=== PATIENT | male | born 1960 | race Two or more races ===

== ENCOUNTER 2016-10-11 17:51 | Inpatient (IN) | payer SELFPAY ==
[~2016-10-11] VITALS: Ht 162.6 cm; Wt 81.1 kg
[2016-10-11 19:06] LABS: Basophils # (auto) 0 uL; Basophils % (auto) 0.4 % (0.0-2.0); Eosinophils # (auto) 0 uL; Eosinophils % (auto) 0.1 % (0.0-7.0); Hematocrit 50.5 % (41.0-53.0); Hemoglobin 16.1 g/dL (13.5-17.5); Lymphocytes # (auto) 1.4 uL; Lymphocytes % (auto) 13.5 % (10.0-50.0); Mean Corpuscular Hemoglobin 27.3 pg (28.0-32.0); Mean Corpuscular Volume 85.5 fL (80.0-100.0); Mean Platelet Volume 9.6 fL (7.4-10.4); Monocytes # (auto) 0.5 uL; Monocytes % (auto) 4.5 % (0.0-12.0); Neutrophils # (auto) 8.3 uL; Neutrophils % (auto) 81.5 % (37.0-80.0); Platelet Count (auto) 206 10^3/uL (140-450); Red Cell Distribution Width 13.3 % (11.6-16.0); White Blood Cell 10.2 10^3/uL (4.4-10.8)
[2016-10-11 19:21] LABS: INR 1.04 (0.9-1.15); Partial Thromboplastin Time 25.8 sec (22.64-33.71); Prothrombin Time 10.7 sec (9.37-12.3)
[2016-10-11 19:29] LABS: Albumin 4.2 g/dL (3.4-5.0); BUN/Creatinine Ratio 16.3; Bilirubin, Total 0.4 mg/dL (0.2-1.0); Calcium 9.5 mg/dL (8.5-10.1); Potassium 4.2 mmol/L (3.5-5.1); Total Protein 8.2 g/dL (6.4-8.2)
[2016-10-11] MEDS ORDERED: ONDANSETRON HCL 4 MG/2 ML VIAL IV ONE (20:30)
[2016-10-11] MEDS ORDERED: ASPirin 81 mg TAB PO ONE (20:30)
[2016-10-11] MEDS ORDERED: NITROGLYCERIN 0.4 MG SL TAB SL ONE (20:30)
[2016-10-11] MEDS ORDERED: MORPHINE SULFATE 4 MG/ML SYRG IV ONE (20:30)
[2016-10-11] MEDS ORDERED: HYDROcodone-ACET 5/325MG TAB PO PRN (21:45)
[2016-10-11] MEDS ORDERED: ACETAMINOPHEN 325 MG TAB PO PRN (21:45)
[2016-10-11] MEDS ORDERED: METOPROLOL TARTRATE 25 MG TAB PO ONE (21:45)
[2016-10-11] MEDS ORDERED: ONDANSETRON HCL 4 MG/2 ML VIAL IV PRN (21:45)
[2016-10-11] MEDS ORDERED: NITROGLYCERIN 0.4 MG SL TAB SL PRN (21:45)
[2016-10-11] MEDS ORDERED: MORPHINE SULF INJ 2 MG/ML SYRINGE 1ML IV PRN ×2 (21:45)
[2016-10-11] MEDS ORDERED: CLOPIDOGREL 300 MG TAB PO ONE (21:45)
[2016-10-11] MEDS ORDERED: HEPARIN DRIP/D5W 100UNITS/ML 250 ML IV SCH (22:00)
[2016-10-11] MEDS ORDERED: HEPARIN SODIUM (PORCINE) 5000 UNITS/ML 1ML VIAL IV ONE (22:00)
[2016-10-11] MEDS: SODIUM CHLORIDE 0.9% 1,000 ML IV SCH ×2 (22:02→23:02)
[2016-10-11 22:40] VITALS: BP_SYST 101; BP_SYST 165; BP_DIAS 101; BP_DIAS 170
[2016-10-12] VITALS (11 sets, daily range): BP systolic 126–157; BP diastolic 67–106
[2016-10-12 05:31] LABS: Basophils # (auto) 0 uL; Basophils % (auto) 0.3 % (0.0-2.0); Eosinophils # (auto) 0.1 uL; Eosinophils % (auto) 1.4 % (0.0-7.0); Hematocrit 45.8 % (41.0-53.0); Lymphocytes # (auto) 2.3 uL; Lymphocytes % (auto) 25.1 % (10.0-50.0); Mean Corpuscular Hemoglobin 27.9 pg (28.0-32.0); Mean Corpuscular Hgb Conc. 32.7 g/dL (32.0-36.0); Mean Corpuscular Volume 85.4 fL (80.0-100.0); Mean Platelet Volume 9.5 fL (7.4-10.4); Monocytes # (auto) 0.7 uL; Monocytes % (auto) 7.1 % (0.0-12.0); Neutrophils # (auto) 6.1 uL; Neutrophils % (auto) 66.1 % (37.0-80.0); Platelet Count (auto) 189 10^3/uL (140-450); Red Cell Distribution Width 13.3 % (11.6-16.0); White Blood Cell 9.3 10^3/uL (4.4-10.8)
[2016-10-12 05:44] LABS: INR 1.07 (0.9-1.15); Partial Thromboplastin Time 35.2 sec (22.64-33.71)
[2016-10-12 05:58] LABS: Albumin 3.6 g/dL (3.4-5.0); BUN/Creatinine Ratio 18.9; Bilirubin, Total 0.6 mg/dL (0.2-1.0); Calcium 8.9 mg/dL (8.5-10.1); Potassium 3.6 mmol/L (3.5-5.1); Total Protein 7.1 g/dL (6.4-8.2)
[2016-10-12] MEDS ORDERED: LIDOCAINE 2%HCL (LOCAL ANESTH.) INJ 20ML MDV ONE (08:44)
[2016-10-12] MEDS ORDERED: IODIXANOL 320MG/ML 100ML BTL IV ONE (08:44)
[2016-10-12] MEDS ORDERED: ANGIOMAX 250 MG VIAL IV ONE (09:21)
[2016-10-12] MEDS ORDERED: fentaNYL CITRATE 100 MCG/2 ML VL ONE (09:21)
[2016-10-12] MEDS ORDERED: MIDAZOLAM HCL 1MG/1ML-2 ML VIAL ONE (09:22)
[2016-10-12] MEDS ORDERED: SODIUM CHL 0.9% 0 ML ONE (09:22)
[2016-10-12] MEDS ORDERED: CLOPIDOGREL BISULFATE 75 MG TAB PO SCH (10:00)
[2016-10-12] MEDS ORDERED: SODIUM CHLORIDE 0.9% 1,000 ML IV SCH (10:16)
[2016-10-12] MEDS: METOPROLOL TARTRATE 25 MG TAB PO SCH ×2 (10:24→22:09)
[2016-10-12] MEDS ORDERED: ACETAMINOPHEN 500 MG TAB PO PRN (10:30)
[2016-10-12] MEDS ORDERED: NITROGLYCERIN 2% OINT 1GM PKG TD ONE ×2 (10:30→10:32)
[2016-10-12] MEDS ORDERED: DEXTROSE (50%) 50ML SYRG IV PRN (10:45)
[2016-10-12] MEDS: ACCU-CHEK COMFORT CURVE STRIP VI SCH ×3 (11:41→22:26)
[2016-10-12] MEDS: InsuLIN REG 1unit/0.01ml Soln (100units/ml) SC SCH ×3 (12:03→22:25)
[2016-10-12] MEDS: ASPirin 81 mg TAB PO SCH (12:10)
[2016-10-12] MEDS ORDERED: HEPARIN DRIP/D5W 100UNITS/ML 250 ML IV SCH (14:00)
[2016-10-12 14:35] LABS: Cholesterol 234 mg/dL (<200); HDL Cholesterol 51 mg/dL (40-59); LDL Cholesterol 177 mg/dL (<100); Triglycerides 159 mg/dL (<150)
[2016-10-12] MEDS: NITROGLYCERIN 2% OINT 1GM PKG TD SCH ×2 (15:13→22:11)
[2016-10-12] MEDS: HEPARIN DRIP/D5W 100UNITS/ML 250 ML IV SCH (21:00)
[2016-10-12] MEDS ORDERED: HEPARIN SODIUM (PORCINE) 5000 UNITS/ML 1ML VIAL IV ONE (21:00)
[2016-10-12] MEDS: ATORVASTATIN 20 MG TAB PO SCH (22:10)
[2016-10-12] MEDS: ENALAPRIL MALEATE 2.5 MG TAB PO SCH (23:40)
[2016-10-13] VITALS (7 sets, daily range): BP systolic 93–147; BP diastolic 61–81
[2016-10-13 02:28] LABS: Basophils # (auto) 0.1 uL; Basophils % (auto) 0.6 % (0.0-2.0); Eosinophils # (auto) 0.1 uL; Eosinophils % (auto) 0.8 % (0.0-7.0); Hematocrit 45.5 % (41.0-53.0); Hemoglobin 14.9 g/dL (13.5-17.5); Lymphocytes # (auto) 2.5 uL; Mean Corpuscular Hemoglobin 27.6 pg (28.0-32.0); Mean Corpuscular Hgb Conc. 32.7 g/dL (32.0-36.0); Mean Corpuscular Volume 84.4 fL (80.0-100.0); Mean Platelet Volume 9.4 fL (7.4-10.4); Monocytes # (auto) 0.7 uL; Monocytes % (auto) 7.6 % (0.0-12.0); Neutrophils # (auto) 6.2 uL; Platelet Count (auto) 199 10^3/uL (140-450); Red Cell Distribution Width 12.9 % (11.6-16.0); White Blood Cell 9.6 10^3/uL (4.4-10.8)
[2016-10-13 02:49] LABS: Albumin 3.2 g/dL (3.4-5.0); BUN/Creatinine Ratio 15.6; Calcium 8.6 mg/dL (8.5-10.1); Potassium 3.6 mmol/L (3.5-5.1)
[2016-10-13 02:52] LABS: Bilirubin, Total 0.7 mg/dL (0.2-1.0); Total Protein 6.8 g/dL (6.4-8.2)
[2016-10-13 02:58] LABS: Prothrombin Time 11.9 sec (9.37-12.3)
[2016-10-13 03:27] LABS: INR 1.16 (0.9-1.15)
[2016-10-13 03:29] LABS: Partial Thromboplastin Time 80.8 sec (22.64-33.71)
[2016-10-13 03:56] LABS: B-Type Natriuretic Peptide 153.93 pg/mL (0-100)
[2016-10-13] MEDS: NITROGLYCERIN 2% OINT 1GM PKG TD SCH ×3 (06:00→22:36)
[2016-10-13] MEDS: ACCU-CHEK COMFORT CURVE STRIP VI SCH ×4 (06:14→22:00)
[2016-10-13] MEDS: InsuLIN REG 1unit/0.01ml Soln (100units/ml) SC SCH ×4 (06:20→22:30)
[2016-10-13] MEDS: ASPirin 81 mg TAB PO SCH (09:46)
[2016-10-13] MEDS: METOPROLOL TARTRATE 25 MG TAB PO SCH ×2 (09:47→22:32)
[2016-10-13] MEDS: ENALAPRIL MALEATE 2.5 MG TAB PO SCH ×2 (10:00→22:32)
[2016-10-13 11:07] LABS: INR 1.28 (0.9-1.15)
[2016-10-13 11:45] LABS: Partial Thromboplastin Time > 170.00 sec (22.64-33.71)
[2016-10-13] MEDS: SODIUM CHLORIDE 0.9% 1,000 ML IV SCH (16:27)
[2016-10-13] MEDS ORDERED: POTASSIUM CHL 20 Meq TABLET PO ONE ×2 (16:45→18:00)
[2016-10-13 18:46] LABS: INR 1.09 (0.9-1.15); Prothrombin Time 11.2 sec (9.37-12.3)
[2016-10-13 19:11] LABS: Partial Thromboplastin Time 71.3 sec (22.64-33.71)
[2016-10-13] MEDS: ATORVASTATIN 20 MG TAB PO SCH (22:30)
[2016-10-13] MEDS: HEPARIN DRIP/D5W 100UNITS/ML 250 ML IV SCH (23:20)
[2016-10-14 01:16] LABS: INR 1.09 (0.9-1.15); Partial Thromboplastin Time 34.5 sec (22.64-33.71); Prothrombin Time 11.2 sec (9.37-12.3)
[2016-10-14 04:00] VITALS: BP 101/66
[2016-10-14] MEDS: NITROGLYCERIN 2% OINT 1GM PKG TD SCH ×3 (06:00→22:00)
[2016-10-14 06:21] LABS: INR 1.1 (0.9-1.15); Partial Thromboplastin Time 63.9 sec (22.64-33.71); Prothrombin Time 11.3 sec (9.37-12.3)
[2016-10-14] MEDS: InsuLIN REG 1unit/0.01ml Soln (100units/ml) SC SCH ×4 (06:51→22:49)
[2016-10-14] MEDS: ACCU-CHEK COMFORT CURVE STRIP VI SCH ×4 (06:51→22:00)
[2016-10-14 07:58] VITALS: BP 111/70
[2016-10-14] MEDS: ASPirin 81 mg TAB PO SCH (09:34)
[2016-10-14] MEDS: SODIUM CHLORIDE 0.9% 1,000 ML IV SCH ×2 (09:34→22:41)
[2016-10-14] MEDS: METOPROLOL TARTRATE 25 MG TAB PO SCH ×2 (09:36→22:00)
[2016-10-14] MEDS: ENALAPRIL MALEATE 2.5 MG TAB PO SCH ×2 (09:39→22:47)
[2016-10-14 12:00] VITALS: BP 114/69
[2016-10-14 12:12] LABS: INR 1.07 (0.9-1.15)
[2016-10-14 16:00] VITALS: BP 111/76
[2016-10-14] MEDS: HEPARIN DRIP/D5W 100UNITS/ML 250 ML IV SCH ×2 (17:19→20:50)
[2016-10-14 20:00] VITALS: BP 104/69
[2016-10-14 20:06] LABS: INR 1.11 (0.9-1.15); Partial Thromboplastin Time 48.8 sec (22.64-33.71); Prothrombin Time 11.4 sec (9.37-12.3)
[2016-10-14] MEDS: ATORVASTATIN 20 MG TAB PO SCH (22:42)
[2016-10-15] VITALS (11 sets, daily range): BP systolic 101–122; BP diastolic 46–85
[2016-10-15 03:50] LABS: Basophils # (auto) 0 uL; Basophils % (auto) 0.4 % (0.0-2.0); Eosinophils # (auto) 0.1 uL; Eosinophils % (auto) 1.6 % (0.0-7.0); Hematocrit 35.3 % (41.0-53.0); Hemoglobin 11.2 g/dL (13.5-17.5); Lymphocytes # (auto) 1.4 uL; Lymphocytes % (auto) 23.7 % (10.0-50.0); Mean Corpuscular Hemoglobin 27.3 pg (28.0-32.0); Mean Corpuscular Hgb Conc. 31.8 g/dL (32.0-36.0); Mean Platelet Volume 8.5 fL (7.4-10.4); Monocytes # (auto) 0.4 uL; Monocytes % (auto) 6.4 % (0.0-12.0); Neutrophils # (auto) 4.1 uL; Neutrophils % (auto) 67.9 % (37.0-80.0); Platelet Count (auto) 153 10^3/uL (140-450)
[2016-10-15 04:25] LABS: Prothrombin Time 12.9 sec (9.37-12.3)
[2016-10-15 04:26] LABS: INR 1.25 (0.9-1.15)
[2016-10-15 05:30] LABS: BUN/Creatinine Ratio 19.1; Calcium 8.7 mg/dL (8.5-10.1); Potassium 3.9 mmol/L (3.5-5.1)
[2016-10-15] MEDS ORDERED: VANCOMYCIN 1GM/250ML D5W 250 ML IV ONE (05:30)
[2016-10-15] MEDS ORDERED: ceFAZolin 1GM 2 GM in D5W 5% 50 ML IV ONE (05:30)
[2016-10-15] MEDS ORDERED: CHLORHEXIDINE 4% TOPICAL soln 473ML TOP ONE (05:30)
[2016-10-15] MEDS ORDERED: MORPHINE SULF INJ 2 MG/ML SYRINGE 1ML IV PRN (05:30)
[2016-10-15] MEDS ORDERED: NITROGLYCERIN 0.4 MG SL TAB SL PRN (05:30)
[2016-10-15] MEDS ORDERED: CHLORHEXIDINE 0.12% ORAL rinse 473ML MT ONE (05:30)
[2016-10-15] MEDS ORDERED: ACCU-CHEK COMFORT CURVE STRIP VI ONE (05:30)
[2016-10-15] MEDS: InsuLIN REG 1unit/0.01ml Soln (100units/ml) SC SCH ×4 (06:44→22:50)
[2016-10-15] MEDS: NITROGLYCERIN 2% OINT 1GM PKG TD SCH ×3 (06:45→21:06)
[2016-10-15] MEDS: ACCU-CHEK COMFORT CURVE STRIP VI SCH ×4 (07:00→22:00)
[2016-10-15] MEDS ORDERED: MUPIROCIN 2% OINT 22GM TOP SCH (07:00)
[2016-10-15 07:48] LABS: Albumin 2.7 g/dL (3.4-5.0); BUN/Creatinine Ratio 21.1; Bilirubin, Total 0.5 mg/dL (0.2-1.0); Calcium 7.4 mg/dL (8.5-10.1); Potassium 3.3 mmol/L (3.5-5.1); Total Protein 5.7 g/dL (6.4-8.2)
[2016-10-15 07:53] LABS: Urine Bilirubin Negative (Negative); Urine Blood Negative /uL (Negative); Urine Color Yellow (Yellow); Urine Ketone Negative (Negative); Urine Nitrite Negative (Negative); Urine RBC None Seen /hpf (0 - 3); Urine Urobilinogen Normal (Negative); Urine pH 5.5 (5.0-8.0)
[2016-10-15 07:57] LABS: Urine Glucose 1+ mg/dL (Normal)
[2016-10-15] MEDS: METOPROLOL TARTRATE 25 MG TAB PO SCH ×2 (09:56→21:05)
[2016-10-15] MEDS: ASPirin 81 mg TAB PO SCH (09:57)
[2016-10-15] MEDS: ENALAPRIL MALEATE 2.5 MG TAB PO SCH ×2 (09:57→21:06)
[2016-10-15] MEDS: SODIUM CHLORIDE 0.9% 1,000 ML IV SCH (09:57)
[2016-10-15] MEDS ORDERED: POTASSIUM CHL 20 Meq TABLET PO ONE (12:00)
[2016-10-15] MEDS: HEPARIN DRIP/D5W 100UNITS/ML 250 ML IV SCH (13:03)
[2016-10-15 19:46] LABS: INR 1.14 (0.9-1.15); Partial Thromboplastin Time 39.2 sec (22.64-33.71); Prothrombin Time 11.7 sec (9.37-12.3)
[2016-10-15] MEDS: ATORVASTATIN 20 MG TAB PO SCH (21:04)
[2016-10-16] VITALS (19 sets, daily range): BP systolic 90–141; BP diastolic 44–82
[2016-10-16] MEDS: SODIUM CHLORIDE 0.9% 1,000 ML IV SCH ×2 (01:39→06:10)
[2016-10-16 04:03] LABS: Basophils # (auto) 0 uL; Basophils % (auto) 0.3 % (0.0-2.0); Eosinophils # (auto) 0.2 uL; Eosinophils % (auto) 2.2 % (0.0-7.0); Hematocrit 40.5 % (41.0-53.0); Lymphocytes # (auto) 1.6 uL; Lymphocytes % (auto) 23.4 % (10.0-50.0); Mean Corpuscular Hemoglobin 27.8 pg (28.0-32.0); Mean Corpuscular Hgb Conc. 32.2 g/dL (32.0-36.0); Mean Corpuscular Volume 86.3 fL (80.0-100.0); Mean Platelet Volume 9.1 fL (7.4-10.4); Monocytes # (auto) 0.4 uL; Monocytes % (auto) 6.1 % (0.0-12.0); Neutrophils # (auto) 4.7 uL; Platelet Count (auto) 168 10^3/uL (140-450); Red Cell Distribution Width 12.9 % (11.6-16.0); White Blood Cell 6.9 10^3/uL (4.4-10.8)
[2016-10-16 04:24] LABS: BUN/Creatinine Ratio 18.8; Calcium 8.5 mg/dL (8.5-10.1); Potassium 3.8 mmol/L (3.5-5.1)
[2016-10-16 04:45] LABS: INR 1.13 (0.9-1.15); Partial Thromboplastin Time 63.2 sec (22.64-33.71); Prothrombin Time 11.6 sec (9.37-12.3)
[2016-10-16] MEDS: HEPARIN DRIP/D5W 100UNITS/ML 250 ML IV SCH (05:31)
[2016-10-16] MEDS: NITROGLYCERIN 2% OINT 1GM PKG TD SCH ×3 (05:34→21:45)
[2016-10-16] MEDS: ACCU-CHEK COMFORT CURVE STRIP VI SCH ×4 (06:44→21:45)
[2016-10-16] MEDS: InsuLIN REG 1unit/0.01ml Soln (100units/ml) SC SCH ×4 (06:47→21:41)
[2016-10-16] MEDS: ENALAPRIL MALEATE 2.5 MG TAB PO SCH ×2 (09:54→21:44)
[2016-10-16] MEDS: METOPROLOL TARTRATE 25 MG TAB PO SCH ×2 (09:54→21:44)
[2016-10-16] MEDS: ASPirin 81 mg TAB PO SCH (09:54)
[2016-10-16 11:16] LABS: INR 1.15 (0.9-1.15); Partial Thromboplastin Time 61.6 sec (22.64-33.71); Prothrombin Time 11.8 sec (9.37-12.3)
[2016-10-16] MEDS ORDERED: ACCU-CHEK COMFORT CURVE STRIP VI ONE (11:30)
[2016-10-16] MEDS ORDERED: CHLORHEXIDINE 4% TOPICAL soln 473ML TOP ONE (11:30)
[2016-10-16] MEDS ORDERED: CHLORHEXIDINE 0.12% ORAL rinse 473ML MT ONE (11:30)
[2016-10-16] MEDS: MUPIROCIN 2% OINT 22GM TOP SCH (21:00)
[2016-10-16] MEDS: ATORVASTATIN 20 MG TAB PO SCH (21:44)
[2016-10-17] VITALS (64 sets, daily range): BP systolic 18–129; BP diastolic 7–97
[2016-10-17] MEDS: HEPARIN DRIP/D5W 100UNITS/ML 250 ML IV SCH (01:00)
[2016-10-17 04:09] LABS: BUN/Creatinine Ratio 22.1; Calcium 8.3 mg/dL (8.5-10.1); Potassium 3.6 mmol/L (3.5-5.1)
[2016-10-17] MEDS ORDERED: CHLORHEXIDINE 4% TOPICAL soln 473ML TOP ONE (05:00)
[2016-10-17] MEDS ORDERED: VANCOMYCIN 1GM/250ML D5W 250 ML IV ONE (05:30)
[2016-10-17] MEDS: NITROGLYCERIN 2% OINT 1GM PKG TD SCH (05:38)
[2016-10-17] MEDS ORDERED: NEOMYCIN-BACITRACIN-POLYM 15GM TOP OINT TOP ONE (05:41)
[2016-10-17] MEDS ORDERED: ceFAZolin 1GM VL ONE (05:41)
[2016-10-17] MEDS ORDERED: HEPARIN 1,000 UNITS/ml 1ML VIAL ONE ×2 (05:42→09:25)
[2016-10-17] MEDS ORDERED: PAPAVERINE HCL 60 MG/2 ML 2ML VIAL ONE ×2 (05:42→09:25)
[2016-10-17] MEDS ORDERED: ALBUMIN 5% 0 ML IV ONE (06:30)
[2016-10-17] MEDS ORDERED: ALBUMIN 25% 200 ML IV ONE ×2 (06:32→13:41)
[2016-10-17] MEDS ORDERED: ceFAZolin 1GM/50ML D5W 100 ML IV ONE (06:44)
[2016-10-17] MEDS ORDERED: fentaNYL CITRATE 10 ML ONE (06:53)
[2016-10-17] MEDS ORDERED: MIDAZOLAM HCL 1MG/1ML-2 ML VIAL ONE (06:53)
[2016-10-17] MEDS ORDERED: CHLORHEXIDINE 0.12% ORAL rinse 473ML MT ONE (07:00)
[2016-10-17] MEDS ORDERED: ROCURONIUM 10MG/ML 10ML VIAL IV ONE ×2 (07:13→13:23)
[2016-10-17] MEDS ORDERED: DEXAMETHASONE SOD PHOS 4 MG/1ML SDV INJ ONE (07:13)
[2016-10-17] MEDS ORDERED: PLASMA-LYTE A pH7.4 5,000 ML INJ ONE (07:41)
[2016-10-17] MEDS ORDERED: NOREPINEPHRINE BITARTRATE 250 ML IV ONE ×2 (07:42→10:47)
[2016-10-17] MEDS ORDERED: AMINOCAPROIC ACID 5 GM/20 ML IV ONE (07:42)
[2016-10-17] MEDS ORDERED: NITROGLYCERIN 50MG/250ML 250 ML IV ONE ×2 (07:42→10:47)
[2016-10-17] MEDS ORDERED: CALCIUM CHLOR(10%) 100MG/ML 10ML SYRINGE IV ONE ×3 (07:42→10:45)
[2016-10-17] MEDS ORDERED: ACCU-CHEK COMFORT CURVE STRIP VI ONE (08:00)
[2016-10-17] MEDS ORDERED: PROPOFOL 100 ML IV ONE ×2 (08:15→11:55)
[2016-10-17] MEDS ORDERED: ADENOSINE 6 MG/2 ML INJ IV ONE (08:45)
[2016-10-17] MEDS ORDERED: SODIUM BICARBONATE 8.4% INJ 50ML SYRINGE IV ONE (08:45)
[2016-10-17] MEDS ORDERED: PHENYLEPHRINE HCL 10 MG/ML VL IV ONE (08:45)
[2016-10-17] MEDS ORDERED: MAGNESIUM SULF 50% 40 MEQ/10 ML VL IV ONE (08:45)
[2016-10-17] MEDS ORDERED: POTASSIUM CHL 2MEQ/ML 20ML IV ONE (08:45)
[2016-10-17] MEDS ORDERED: LIDOCAINE 50MG/5ML INJ 5ML SYRINGE IV ONE (08:45)
[2016-10-17] MEDS ORDERED: AMINOCAPROIC ACID 5 GM/20 ML VL IV ONE (08:45)
[2016-10-17] MEDS ORDERED: SODIUM BICARBONATE 8.4% INJ 50ML SYRINGE ONE ×2 (09:40→10:46)
[2016-10-17] MEDS: METOPROLOL TARTRATE 25 MG TAB PO SCH (10:35)
[2016-10-17] MEDS: SODIUM CHLORIDE 0.9% 1,000 ML IV SCH ×3 (10:38→22:31)
[2016-10-17] MEDS: InsuLIN REG 1unit/0.01ml Soln (100units/ml) SC SCH (10:38)
[2016-10-17] MEDS: ASPirin 81 mg TAB PO SCH (10:39)
[2016-10-17] MEDS: ENALAPRIL MALEATE 2.5 MG TAB PO SCH (10:39)
[2016-10-17] MEDS: MUPIROCIN 2% OINT 22GM TOP SCH (10:39)
[2016-10-17] MEDS: ACCU-CHEK COMFORT CURVE STRIP VI SCH ×10 (10:39→23:18)
[2016-10-17] MEDS ORDERED: DOPamine 1600MCG/ML 250 ML IV ONE (10:45)
[2016-10-17] MEDS ORDERED: MAGNESIUM SULFATE 1GM/100ML 200 ML IV ONE (10:45)
[2016-10-17] MEDS ORDERED: AMIODARONE HCL (50 MG/ ML) 3 ML VIAL IV ONE (10:45)
[2016-10-17] MEDS ORDERED: NICARDIPINE 25MG/250ML BAG KIT 250 ML IV ONE (10:45)
[2016-10-17] MEDS ORDERED: PHENYLEPHRINE IV 250 ML IV ONE (10:45)
[2016-10-17] MEDS ORDERED: EPINEPHrine HCL 250 ML IV ONE (10:45)
[2016-10-17] MEDS ORDERED: DOBUTamine 1000MCG/ML 250 ML IV ONE (10:46)
[2016-10-17] MEDS ORDERED: POTASSIUM CHL 20MEQ/100ML 400 ML IV ONE (10:46)
[2016-10-17] MEDS ORDERED: MILRINONE 20MG/100ML 100 ML IV ONE (10:46)
[2016-10-17] MEDS ORDERED: ALBUMIN 5% 750 ML IV ONE (10:47)
[2016-10-17] MEDS ORDERED: VASOPRESSIN 20 UNIT/ML ONE (10:47)
[2016-10-17] MEDS ORDERED: AMINOCAPROIC ACID 5 GM in SODIUM CHL 0.9% 250 ML IV ONE (11:00)
[2016-10-17] MEDS ORDERED: InsuLIN R (HUMAN) 100 UNITS in SODIUM CHL 0.9% 99 ML IV ONE (11:00)
[2016-10-17] MEDS ORDERED: HEPARIN 30000 UNITS in SODIUM CHLORIDE 0.9% 1000 ML IV ONE (11:00)
[2016-10-17] MEDS ORDERED: PHENYLEPHRINE INJ 20 MG in NS 0.9% 248 ML IV ONE (11:00)
[2016-10-17] MEDS ORDERED: EPINEPHrine HCL INJECTION 4 MG in D5W 5% 250 ML IV ONE (11:00)
[2016-10-17] MEDS ORDERED: AMINOCAPROIC ACID 10 GM in SODIUM CHL 0.9% 100 ML IV ONE (11:00)
[2016-10-17] MEDS ORDERED: VASOPRESSIN 50 UNITS in SODIUM CHL 0.9% 247.5 ML IV ONE (11:00)
[2016-10-17] MEDS ORDERED: PROTAMINE SULFATE 250 MG/25 ML VL IV ONE (11:27)
[2016-10-17] MEDS: MILRINONE 20MG/100ML 100 ML IV SCH (14:31)
[2016-10-17] MEDS ORDERED: NOREPINEPHRINE BITARTRATE 250 ML IV SCH (14:31)
[2016-10-17] MEDS ORDERED: PHENYLEPHRINE IV 250 ML IV SCH (14:31)
[2016-10-17] MEDS: NICARDIPINE 25MG/250ML BAG KIT 250 ML IV SCH ×2 (14:31→19:31)
[2016-10-17] MEDS ORDERED: NITROGLYCERIN 50MG/250ML 250 ML IV SCH (14:31)
[2016-10-17] MEDS ORDERED: SODIUM CHLORIDE 0.9% 200 ML IV PRN (14:31)
[2016-10-17] MEDS ORDERED: INSULIN DRIP 100 UNIT/100ML 100 ML IV SCH (14:31)
[2016-10-17] MEDS ORDERED: ALBUMIN 5% 250 ML IV PRN (14:45)
[2016-10-17] MEDS ORDERED: MORPHINE SULFATE 4 MG/ML SYRG IV PRN (14:45)
[2016-10-17] MEDS ORDERED: MAGNESIUM SULFATE 1GM/100ML 100 ML IV PRN (14:45)
[2016-10-17] MEDS ORDERED: ONDANSETRON HCL 4 MG/2 ML VIAL IV PRN (14:45)
[2016-10-17] MEDS ORDERED: AMIODARONE HCL 150 MG in D5W 5% 100 ML IV ONE (14:45)
[2016-10-17] MEDS ORDERED: IPRATROPIUM BROM 0.5 MG/2.5ML INH SOL NEB PRN (14:45)
[2016-10-17] MEDS ORDERED: METOCLOPRAMIDE HCL 5MG/ml INJ 2ml VIAL IV PRN (14:45)
[2016-10-17] MEDS: SODIUM BICARBONATE 8.4% INJ 50ML SYRINGE IV PRN ×2 (15:00→16:50)
[2016-10-17] MEDS ORDERED: AMIODARONE HCL 900 MG in DEXTROSE 500 ML IV SCH (15:00)
[2016-10-17 15:03] LABS: Basophils # (auto) 0 uL; Eosinophils # (auto) 0 uL; Eosinophils % (auto) 0.1 % (0.0-7.0); Hematocrit 28.5 % (41.0-53.0); Hemoglobin 9.2 g/dL (13.5-17.5); Lymphocytes # (auto) 0.7 uL; Lymphocytes % (auto) 5.8 % (10.0-50.0); Mean Corpuscular Hemoglobin 27.7 pg (28.0-32.0); Mean Corpuscular Hgb Conc. 32.1 g/dL (32.0-36.0); Mean Corpuscular Volume 86.1 fL (80.0-100.0); Mean Platelet Volume 8.5 fL (7.4-10.4); Monocytes # (auto) 0.6 uL; Monocytes % (auto) 5.1 % (0.0-12.0); Neutrophils # (auto) 10.6 uL; Platelet Count (auto) 146 10^3/uL (140-450); Red Cell Distribution Width 12.9 % (11.6-16.0); White Blood Cell 11.9 10^3/uL (4.4-10.8)
[2016-10-17] MEDS: PROPOFOL 100 ML IV SCH ×3 (15:17→22:44)
[2016-10-17] MEDS: SODIUM CHLORIDE 0.9% 500 ML IV SCH (15:28)
[2016-10-17] MEDS: ceFAZolin 1GM 2 GM in D5W 5% 100 ML IV SCH ×2 (15:34→23:19)
[2016-10-17 15:41] LABS: Albumin 4.2 g/dL (3.4-5.0); BUN/Creatinine Ratio 14.3; Calcium 9.2 mg/dL (8.5-10.1); Magnesium 3.2 mg/dL (1.6-2.6); Potassium 4.2 mmol/L (3.5-5.1); Total Protein 6.4 g/dL (6.4-8.2)
[2016-10-17 15:46] LABS: Phosphorus 0.3 mg/dL (2.5-4.90)
[2016-10-17] MEDS ORDERED: LIDOCAINE 1% HCL (LOCAL ANESTH.) INJ 20ML MDV ONE (15:58)
[2016-10-17] MEDS ORDERED: SODIUM PHOSPHATES 20 MEQ in SODIUM CHL 0.9% 100 ML IV ONE (16:00)
[2016-10-17 16:40] LABS: Partial Thromboplastin Time 27.7 sec (22.64-33.71)
[2016-10-17] MEDS ORDERED: SODIUM BICARBONATE 8.4 % INJ 50ML VIAL IV ONE (16:45)
[2016-10-17 16:52] LABS: INR 1.28 (0.9-1.15); Prothrombin Time 13.2 sec (9.37-12.3)
[2016-10-17] MEDS: VANCOMYCIN 1GM/250ML D5W 250 ML IV SCH (17:24)
[2016-10-17] MEDS: ACETAMINOPHEN IV 100 ML IV SCH (18:30)
[2016-10-17 19:00] LABS: Hematocrit 24.7 % (41.0-53.0); Hemoglobin 7.9 g/dL (13.5-17.5)
[2016-10-17] MEDS: MORPHINE SULFATE 4 MG/ML SYRG IV PRN (20:25)
[2016-10-17] MEDS: POTASSIUM CHL 20MEQ/100ML 100 ML IV PRN ×3 (20:53→22:59)
[2016-10-17] MEDS: AMIODARONE HCL 900 MG in DEXTROSE 500 ML IV SCH (21:00)
[2016-10-17] MEDS: CHLORHEXIDINE 0.12% ORAL rinse 473ML MT SCH (21:29)
[2016-10-17] MEDS ORDERED: ACETAMINOPHEN IV 100 ML IV ONE (22:22)
[2016-10-18] VITALS (102 sets, daily range): BP systolic 14–143; BP diastolic 1–88
[2016-10-18] MEDS: ACETAMINOPHEN IV 100 ML IV SCH ×3 (00:05→12:11)
[2016-10-18] MEDS: ACCU-CHEK COMFORT CURVE STRIP VI SCH ×14 (00:06→14:00)
[2016-10-18 00:30] LABS: Basophils # (auto) 0 uL; Basophils % (auto) 0.3 % (0.0-2.0); Eosinophils # (auto) 0 uL; Hematocrit 33.3 % (41.0-53.0); Hemoglobin 10.9 g/dL (13.5-17.5); Lymphocytes # (auto) 0.5 uL; Lymphocytes % (auto) 3.4 % (10.0-50.0); Mean Corpuscular Hgb Conc. 32.7 g/dL (32.0-36.0); Mean Corpuscular Volume 85.6 fL (80.0-100.0); Mean Platelet Volume 8.8 fL (7.4-10.4); Monocytes # (auto) 0.5 uL; Neutrophils # (auto) 12.6 uL; Neutrophils % (auto) 92.3 % (37.0-80.0); Platelet Count (auto) 130 10^3/uL (140-450); Red Cell Distribution Width 12.7 % (11.6-16.0); SUSPECT VIEW TRANSMISSION; White Blood Cell 13.6 10^3/uL (4.4-10.8)
[2016-10-18] MEDS: NICARDIPINE 25MG/250ML BAG KIT 250 ML IV SCH ×3 (00:31→09:26)
[2016-10-18 00:34] LABS: BUN/Creatinine Ratio 15.2; Calcium 8.5 mg/dL (8.5-10.1); Magnesium 2.7 mg/dL (1.6-2.6); Potassium 4.2 mmol/L (3.5-5.1)
[2016-10-18 01:12] LABS: Phosphorus 3.1 mg/dL (2.5-4.90)
[2016-10-18] MEDS: MILRINONE 20MG/100ML 100 ML IV SCH (01:36)
[2016-10-18] MEDS: PROPOFOL 100 ML IV SCH ×2 (02:30→05:12)
[2016-10-18] MEDS: VANCOMYCIN 1GM/250ML D5W 250 ML IV SCH ×2 (04:53→17:11)
[2016-10-18 05:21] LABS: Basophils # (auto) 0 uL; Eosinophils # (auto) 0 uL; Hematocrit 32.1 % (41.0-53.0); Hemoglobin 10.4 g/dL (13.5-17.5); Lymphocytes # (auto) 0.6 uL; Lymphocytes % (auto) 3.9 % (10.0-50.0); Mean Corpuscular Hemoglobin 27.6 pg (28.0-32.0); Mean Corpuscular Hgb Conc. 32.3 g/dL (32.0-36.0); Mean Corpuscular Volume 85.4 fL (80.0-100.0); Monocytes # (auto) 0.7 uL; Monocytes % (auto) 4.4 % (0.0-12.0); Neutrophils # (auto) 13.7 uL; Neutrophils % (auto) 91.7 % (37.0-80.0); Platelet Count (auto) 151 10^3/uL (140-450); White Blood Cell 14.9 10^3/uL (4.4-10.8)
[2016-10-18] MEDS ORDERED: ACETAMINOPHEN IV 100 ML IV ONE (05:28)
[2016-10-18] MEDS: POTASSIUM CHL 20MEQ/100ML 100 ML IV PRN ×4 (05:29→17:57)
[2016-10-18 05:37] LABS: BUN/Creatinine Ratio 16.3; Calcium 8.3 mg/dL (8.5-10.1); Magnesium 2.6 mg/dL (1.6-2.6); Phosphorus 3.6 mg/dL (2.5-4.90); Potassium 3.7 mmol/L (3.5-5.1)
[2016-10-18] MEDS ORDERED: FUROSEMIDE 20 MG/2 ML VIAL IV ONE (06:15)
[2016-10-18] MEDS: SODIUM CHLORIDE 0.9% 1,000 ML IV SCH ×2 (06:31→14:00)
[2016-10-18] MEDS: ceFAZolin 1GM 2 GM in D5W 5% 100 ML IV SCH ×3 (07:45→23:53)
[2016-10-18] MEDS: MORPHINE SULFATE 4 MG/ML SYRG IV PRN ×3 (09:19→23:56)
[2016-10-18] MEDS: CHLORHEXIDINE 0.12% ORAL rinse 473ML MT SCH ×2 (09:25→21:55)
[2016-10-18] MEDS ORDERED: PANTOPRAZOLE SODIUM 40 MG/10 ML VIAL IV SCH (10:00)
[2016-10-18] MEDS ORDERED: CALCIUM GLUC 4.65 MEQ/10ML 4.65 MEQ in SODIUM CHL 0.9% 50 ML IV ONE (11:00)
[2016-10-18] MEDS ORDERED: MORPHINE SULF INJ 2 MG/ML SYRINGE 1ML IV PRN ×2 (11:00→11:45)
[2016-10-18] MEDS ORDERED: POTASSIUM CHL 20MEQ/100ML 100 ML IV PRN (11:00)
[2016-10-18] MEDS ORDERED: METOCLOPRAMIDE HCL 5MG/ml INJ 2ml VIAL IV PRN (11:00)
[2016-10-18] MEDS ORDERED: DEXTROSE (50%) 50ML SYRG IV PRN ×2 (11:00→21:00)
[2016-10-18] MEDS ORDERED: POTASSIUM CHL 10% (20 MEQ/15ML) ORAL SOLN PO PRN (11:00)
[2016-10-18] MEDS ORDERED: NITROGLYCERIN 0.4MG/HR TOPICAL PATCH TD ONE (11:45)
[2016-10-18] MEDS ORDERED: MAGNESIUM SULFATE 1GM/100ML 100 ML IV PRN (11:45)
[2016-10-18] MEDS ORDERED: MILK OF MAGNESIA 30ML SUSP PO PRN (12:00)
[2016-10-18] MEDS: Boost Glucose Control 8 Ounces PO SCH ×2 (12:00→18:00)
[2016-10-18] MEDS: InsuLIN REG 1unit/0.01ml Soln (100units/ml) SC SCH ×3 (14:00→20:47)
[2016-10-18] MEDS: SODIUM CHLORIDE 0.9% 500 ML IV SCH (14:31)
[2016-10-18] MEDS ORDERED: SODIUM CHLORIDE 0.9% 1,000 ML IV SCH (14:31)
[2016-10-18 14:33] LABS: Basophils # (auto) 0 uL; Eosinophils # (auto) 0 uL; Hematocrit 31.6 % (41.0-53.0); Hemoglobin 10.2 g/dL (13.5-17.5); Lymphocytes # (auto) 0.7 uL; Lymphocytes % (auto) 4.6 % (10.0-50.0); Mean Corpuscular Hemoglobin 27.7 pg (28.0-32.0); Mean Corpuscular Hgb Conc. 32.1 g/dL (32.0-36.0); Mean Corpuscular Volume 86.3 fL (80.0-100.0); Mean Platelet Volume 9.5 fL (7.4-10.4); Monocytes # (auto) 0.8 uL; Monocytes % (auto) 5.5 % (0.0-12.0); Neutrophils # (auto) 12.9 uL; Neutrophils % (auto) 89.9 % (37.0-80.0); Platelet Count (auto) 148 10^3/uL (140-450); Red Cell Distribution Width 14.1 % (11.6-16.0); White Blood Cell 14.3 10^3/uL (4.4-10.8)
[2016-10-18] MEDS: IPRATROPIUM BROM 0.5 MG/2.5ML INH SOL NEB SCH ×2 (14:33→22:00)
[2016-10-18 14:46] LABS: BUN/Creatinine Ratio 18.3; Calcium 8.3 mg/dL (8.5-10.1); Magnesium 2.5 mg/dL (1.6-2.6); Phosphorus 4.9 mg/dL (2.5-4.90); Potassium 3.8 mmol/L (3.5-5.1)
[2016-10-18] MEDS ORDERED: ALBUMIN 25% 50 ML IV ONE (15:00)
[2016-10-18] MEDS ORDERED: METOPROLOL TARTRATE 25 MG TAB PO ONE (16:00)
[2016-10-18] MEDS: FUROSEMIDE 40 MG TAB PO SCH (16:17)
[2016-10-18] MEDS ORDERED: FUROSEMIDE 20 MG/2 ML VIAL IV PRN (16:30)
[2016-10-18] MEDS: HYDROcodone-ACET 7.5/325MG TAB PO PRN ×2 (16:56→23:54)
[2016-10-18 20:30] LABS: Magnesium 2.3 mg/dL (1.6-2.6); Potassium 4.3 mmol/L (3.5-5.1)
[2016-10-18] MEDS: AMIODARONE HCL 900 MG in DEXTROSE 500 ML IV SCH (21:00)
[2016-10-18] MEDS ORDERED: hydrALAZINE HCL 20 MG/ML VL IV PRN (21:15)
[2016-10-18] MEDS ORDERED: PROPRANOLOL HCL 1 MG/ML VIAL IV PRN (21:15)
[2016-10-18] MEDS: DOCUSATE SOD 100 MG CAP PO SCH (21:46)
[2016-10-18] MEDS: ATORVASTATIN 20 MG TAB PO SCH (21:47)
[2016-10-18] MEDS: ALBUMIN 25% 50 ML IV SCH (21:58)
[2016-10-18] MEDS ORDERED: METOPROLOL TARTRATE 25 MG TAB PO SCH (22:00)
[2016-10-18] MEDS: METOPROLOL TARTRATE 25 MG TAB PO SCH (23:00)
[2016-10-19] VITALS (56 sets, daily range): BP systolic 85–143; BP diastolic 49–91
[2016-10-19] MEDS: IPRATROPIUM BROM 0.5 MG/2.5ML INH SOL NEB SCH ×6 (02:00→22:00)
[2016-10-19] MEDS: ACCU-CHEK COMFORT CURVE STRIP VI SCH ×11 (04:00→23:07)
[2016-10-19] MEDS: InsuLIN REG 1unit/0.01ml Soln (100units/ml) SC SCH ×5 (04:34→16:18)
[2016-10-19 04:35] LABS: Basophils # (auto) 0 uL; Basophils % (auto) 0.4 % (0.0-2.0); Eosinophils # (auto) 0 uL; Hematocrit 29.8 % (41.0-53.0); Hemoglobin 9.5 g/dL (13.5-17.5); Lymphocytes # (auto) 1.2 uL; Lymphocytes % (auto) 10.8 % (10.0-50.0); Mean Corpuscular Hemoglobin 27.6 pg (28.0-32.0); Mean Corpuscular Hgb Conc. 31.8 g/dL (32.0-36.0); Mean Corpuscular Volume 86.7 fL (80.0-100.0); Mean Platelet Volume 9.4 fL (7.4-10.4); Monocytes # (auto) 0.8 uL; Monocytes % (auto) 6.7 % (0.0-12.0); Neutrophils # (auto) 9.5 uL; Neutrophils % (auto) 82.1 % (37.0-80.0); Platelet Count (auto) 148 10^3/uL (140-450); Red Cell Distribution Width 14.1 % (11.6-16.0); White Blood Cell 11.6 10^3/uL (4.4-10.8)
[2016-10-19 04:57] LABS: Albumin 3.8 g/dL (3.4-5.0); Calcium 8.2 mg/dL (8.5-10.1); Magnesium 2.2 mg/dL (1.6-2.6); Potassium 3.9 mmol/L (3.5-5.1)
[2016-10-19] MEDS: MORPHINE SULFATE 4 MG/ML SYRG IV PRN (04:57)
[2016-10-19 04:59] LABS: Bilirubin, Total 0.7 mg/dL (0.2-1.0); Total Protein 6.3 g/dL (6.4-8.2)
[2016-10-19] MEDS: VANCOMYCIN 1GM/250ML D5W 250 ML IV SCH (05:01)
[2016-10-19] MEDS: POTASSIUM CHL 20MEQ/100ML 100 ML IV PRN ×2 (05:20→06:18)
[2016-10-19] MEDS: FUROSEMIDE 40 MG TAB PO SCH ×2 (06:00→17:40)
[2016-10-19] MEDS: ALBUMIN 25% 50 ML IV SCH (06:19)
[2016-10-19] MEDS: HYDROcodone-ACET 7.5/325MG TAB PO PRN (06:21)
[2016-10-19] MEDS ORDERED: metFORMIN HYDROCHLORIDE 500 MG TAB PO SCH ×2 (07:00)
[2016-10-19] MEDS: ceFAZolin 1GM 2 GM in D5W 5% 100 ML IV SCH (07:50)
[2016-10-19] MEDS: Boost Glucose Control 8 Ounces PO SCH ×3 (07:51→17:40)
[2016-10-19] MEDS: SODIUM CHLORIDE 0.9% 1,000 ML IV SCH ×2 (07:55→13:58)
[2016-10-19] MEDS ORDERED: CALCIUM GLUC 4.65 MEQ/10ML 4.65 MEQ in SODIUM CHL 0.9% 50 ML IV ONE (08:00)
[2016-10-19] MEDS: METOPROLOL TARTRATE 25 MG TAB PO SCH (09:46)
[2016-10-19] MEDS: PANTOPRAZOLE 40 MG TAB PO SCH (09:46)
[2016-10-19] MEDS: DOCUSATE SOD 100 MG CAP PO SCH ×2 (09:46→22:18)
[2016-10-19] MEDS: CHLORHEXIDINE 0.12% ORAL rinse 473ML MT SCH ×2 (09:46→22:00)
[2016-10-19] MEDS: ASPirin 81 mg TAB PO SCH (09:47)
[2016-10-19] MEDS: NITROGLYCERIN 0.4MG/HR TOPICAL PATCH TD SCH (09:47)
[2016-10-19] MEDS: POTASSIUM CHL 20 Meq TABLET PO SCH (09:47)
[2016-10-19] MEDS ORDERED: ISOSORBIDE MONONITRATE 60 MG TAB PO SCH (10:00)
[2016-10-19] MEDS ORDERED: metFORMIN HYDROCHLORIDE 500 MG TAB PO ONE (10:00)
[2016-10-19] MEDS ORDERED: METOPROLOL TARTRATE 25 MG TAB PO ONE (11:45)
[2016-10-19] MEDS: SODIUM CHLORIDE 0.9% 500 ML IV SCH (13:58)
[2016-10-19] MEDS: HYDROcodone-ACET 10/325MG TAB PO PRN ×2 (13:59→20:26)
[2016-10-19] MEDS ORDERED: INSULIN DRIP 100 UNIT/100ML 100 ML IV SCH (17:08)
[2016-10-19] MEDS ORDERED: DEXTROSE (50%) 50ML SYRG IV PRN (17:15)
[2016-10-19] MEDS: ATORVASTATIN 20 MG TAB PO SCH (22:18)
[2016-10-19] MEDS: METOPROLOL TARTRATE 50 MG TAB PO SCH (22:18)
[2016-10-19 22:38] LABS: Potassium 3.5 mmol/L (3.5-5.1)
[2016-10-19 22:40] LABS: Magnesium 2.1 mg/dL (1.6-2.6)
[2016-10-19] MEDS ORDERED: POTASSIUM CHL 20 Meq TABLET PO ONE (23:15)
[2016-10-20] VITALS (45 sets, daily range): BP systolic 93–132; BP diastolic 48–84
[2016-10-20] MEDS: ACCU-CHEK COMFORT CURVE STRIP VI SCH ×10 (01:54→20:03)
[2016-10-20] MEDS: HYDROcodone-ACET 10/325MG TAB PO PRN ×3 (02:49→18:13)
[2016-10-20 03:56] LABS: Basophils # (auto) 0 uL; Basophils % (auto) 0.4 % (0.0-2.0); Eosinophils # (auto) 0 uL; Eosinophils % (auto) 0.4 % (0.0-7.0); Hematocrit 31.1 % (41.0-53.0); Hemoglobin 9.8 g/dL (13.5-17.5); Lymphocytes # (auto) 1.6 uL; Lymphocytes % (auto) 15.3 % (10.0-50.0); Mean Corpuscular Hemoglobin 27.4 pg (28.0-32.0); Mean Corpuscular Hgb Conc. 31.7 g/dL (32.0-36.0); Mean Corpuscular Volume 86.5 fL (80.0-100.0); Mean Platelet Volume 9.7 fL (7.4-10.4); Monocytes # (auto) 0.8 uL; Monocytes % (auto) 7.8 % (0.0-12.0); Neutrophils # (auto) 7.8 uL; Neutrophils % (auto) 76.1 % (37.0-80.0); Platelet Count (auto) 160 10^3/uL (140-450); Red Cell Distribution Width 13.4 % (11.6-16.0); White Blood Cell 10.3 10^3/uL (4.4-10.8)
[2016-10-20 04:26] LABS: Albumin 3.8 g/dL (3.4-5.0); BUN/Creatinine Ratio 31.5; Calcium 8.7 mg/dL (8.5-10.1); Magnesium 2.1 mg/dL (1.6-2.6); Potassium 3.9 mmol/L (3.5-5.1)
[2016-10-20 04:29] LABS: Total Protein 6.6 g/dL (6.4-8.2)
[2016-10-20] MEDS ORDERED: POTASSIUM CHL 20 Meq TABLET PO ONE (05:15)
[2016-10-20] MEDS: IPRATROPIUM BROM 0.5 MG/2.5ML INH SOL NEB SCH ×4 (06:28→18:19)
[2016-10-20] MEDS: FUROSEMIDE 40 MG TAB PO SCH ×2 (06:31→18:14)
[2016-10-20] MEDS ORDERED: MAGNESIUM SULFATE 1GM/100ML 100 ML IV PRN (08:45)
[2016-10-20] MEDS ORDERED: POTASSIUM CHL 10% (20 MEQ/15ML) ORAL SOLN PO PRN (08:45)
[2016-10-20] MEDS ORDERED: MAGNESIUM SULFATE 1GM/100ML 100 ML IV ONE (08:45)
[2016-10-20] MEDS ORDERED: metFORMIN HYDROCHLORIDE 500 MG TAB PO SCH (09:15)
[2016-10-20] MEDS ORDERED: DEXTROSE (50%) 50ML SYRG IV PRN (09:15)
[2016-10-20] MEDS: NITROGLYCERIN 0.4MG/HR TOPICAL PATCH TD SCH (09:46)
[2016-10-20] MEDS: PANTOPRAZOLE 40 MG TAB PO SCH (09:46)
[2016-10-20] MEDS: METOPROLOL TARTRATE 50 MG TAB PO SCH (09:46)
[2016-10-20] MEDS: DOCUSATE SOD 100 MG CAP PO SCH ×2 (09:47→21:47)
[2016-10-20] MEDS: POTASSIUM CHL 20 Meq TABLET PO SCH (09:47)
[2016-10-20] MEDS: ASPirin 81 mg TAB PO SCH (09:47)
[2016-10-20] MEDS: ISOSORBIDE MONONITRATE 60 MG TAB PO SCH (09:48)
[2016-10-20] MEDS: Boost Glucose Control 8 Ounces PO SCH ×3 (09:49→19:30)
[2016-10-20] MEDS: CHLORHEXIDINE 0.12% ORAL rinse 473ML MT SCH ×2 (10:00→21:47)
[2016-10-20] MEDS ORDERED: INSULIN DETEMIR(LEVEMIR) 1unit/0.01ml Soln (100units/ml) SC SCH (10:00)
[2016-10-20] MEDS: InsuLIN REG 1unit/0.01ml Soln (100units/ml) SC SCH ×3 (11:58→20:03)
[2016-10-20] MEDS: MORPHINE SULFATE 4 MG/ML SYRG IV PRN (12:21)
[2016-10-20] MEDS ORDERED: LEVOFLOXACIN 750MG 150 ML IV ONE (15:00)
[2016-10-20] MEDS: AMIODARONE HCL 900 MG in DEXTROSE 500 ML IV SCH ×2 (16:18→20:56)
[2016-10-20] MEDS ORDERED: LEVOFLOXACIN 500 MG TAB PO ONE (18:00)
[2016-10-20] MEDS ORDERED: metFORMIN HYDROCHLORIDE 850 MG TAB PO SCH ×2 (18:00)
[2016-10-20] MEDS: metFORMIN HYDROCHLORIDE 500 MG TAB PO SCH (18:28)
[2016-10-20] MEDS: SODIUM CHLORIDE 0.9% 1,000 ML IV SCH (18:46)
[2016-10-20] MEDS: ATORVASTATIN 20 MG TAB PO SCH (21:47)
[2016-10-20] MEDS ORDERED: METOPROLOL TARTRATE 50 MG TAB PO SCH (22:00)
[2016-10-21] VITALS (35 sets, daily range): BP systolic 97–132; BP diastolic 52–94
[2016-10-21] MEDS: ACCU-CHEK COMFORT CURVE STRIP VI SCH ×6 (00:14→20:10)
[2016-10-21] MEDS: InsuLIN REG 1unit/0.01ml Soln (100units/ml) SC SCH ×6 (00:17→20:13)
[2016-10-21] MEDS: HYDROcodone-ACET 10/325MG TAB PO PRN ×2 (04:00→23:38)
[2016-10-21 04:02] LABS: Basophils # (auto) 0 uL; Basophils % (auto) 0.3 % (0.0-2.0); Eosinophils # (auto) 0.1 uL; Eosinophils % (auto) 1.2 % (0.0-7.0); Hematocrit 31.8 % (41.0-53.0); Hemoglobin 10.1 g/dL (13.5-17.5); Lymphocytes # (auto) 1.5 uL; Lymphocytes % (auto) 16.5 % (10.0-50.0); Mean Corpuscular Hemoglobin 27.6 pg (28.0-32.0); Mean Corpuscular Hgb Conc. 31.9 g/dL (32.0-36.0); Mean Corpuscular Volume 86.5 fL (80.0-100.0); Mean Platelet Volume 9.5 fL (7.4-10.4); Monocytes # (auto) 0.8 uL; Monocytes % (auto) 8.9 % (0.0-12.0); Neutrophils # (auto) 6.5 uL; Neutrophils % (auto) 73.1 % (37.0-80.0); Platelet Count (auto) 177 10^3/uL (140-450); Red Cell Distribution Width 13.8 % (11.6-16.0); White Blood Cell 8.9 10^3/uL (4.4-10.8)
[2016-10-21 04:22] LABS: Potassium 3.6 mmol/L (3.5-5.1)
[2016-10-21 04:29] LABS: Albumin 3.5 g/dL (3.4-5.0); BUN/Creatinine Ratio 31.8; Calcium 8.9 mg/dL (8.5-10.1); Magnesium 2.3 mg/dL (1.6-2.6)
[2016-10-21 04:32] LABS: Total Protein 6.8 g/dL (6.4-8.2)
[2016-10-21] MEDS ORDERED: POTASSIUM CHL 20 Meq TABLET PO ONE (06:00)
[2016-10-21] MEDS: IPRATROPIUM BROM 0.5 MG/2.5ML INH SOL NEB SCH ×5 (06:12→22:32)
[2016-10-21] MEDS: FUROSEMIDE 40 MG TAB PO SCH ×2 (07:20→17:53)
[2016-10-21] MEDS: glipiZIDE 5 MG TAB PO SCH (07:20)
[2016-10-21] MEDS: Boost Glucose Control 8 Ounces PO SCH ×3 (08:00→18:10)
[2016-10-21] MEDS ORDERED: METOPROLOL TARTRATE 50 MG TAB PO SCH (10:00)
[2016-10-21] MEDS ORDERED: LEVOFLOXACIN 750MG 150 ML IV SCH (10:00)
[2016-10-21] MEDS: DOCUSATE SOD 100 MG CAP PO SCH ×2 (11:12→22:27)
[2016-10-21] MEDS: POTASSIUM CHL 20 Meq TABLET PO SCH (11:12)
[2016-10-21] MEDS: ASPirin 81 mg TAB PO SCH (11:13)
[2016-10-21] MEDS: ISOSORBIDE MONONITRATE 60 MG TAB PO SCH (11:13)
[2016-10-21] MEDS: LEVOFLOXACIN 500 MG TAB PO SCH (11:14)
[2016-10-21] MEDS: PANTOPRAZOLE 40 MG TAB PO SCH (11:14)
[2016-10-21] MEDS: NITROGLYCERIN 0.4MG/HR TOPICAL PATCH TD SCH (11:16)
[2016-10-21] MEDS: metFORMIN HYDROCHLORIDE 500 MG TAB PO SCH ×2 (11:22→17:53)
[2016-10-21] MEDS: CHLORHEXIDINE 0.12% ORAL rinse 473ML MT SCH ×2 (11:24→22:26)
[2016-10-21] MEDS: SODIUM CHLORIDE 0.9% 1,000 ML IV SCH (11:38)
[2016-10-21] MEDS ORDERED: METO-5 PO (12:43)
[2016-10-21] MEDS ORDERED: ISO60SRT PO (12:43)
[2016-10-21] MEDS ORDERED: DOCU100C8 PO (12:43)
[2016-10-21] MEDS ORDERED: ASPI81CH43 PO (12:43)
[2016-10-21] MEDS ORDERED: POTA20TA53 PO (12:43)
[2016-10-21] MEDS ORDERED: METF500T PO (12:43)
[2016-10-21] MEDS ORDERED: GLIP-115 PO (12:43)
[2016-10-21] MEDS ORDERED: ATOR20TA50 PO (12:43)
[2016-10-21] MEDS ORDERED: FURO40TA4 PO (12:43)
[2016-10-21] MEDS ORDERED: LEVO500T3 PO (12:43)
[2016-10-21] MEDS ORDERED: METOPROLOL TARTRATE 25 MG TAB PO ONE (13:15)
[2016-10-21] MEDS: ATORVASTATIN 20 MG TAB PO SCH (22:27)
[2016-10-21] MEDS: METOPROLOL TARTRATE 25 MG TAB PO SCH (22:28)
[2016-10-22] VITALS (15 sets, daily range): BP systolic 89–120; BP diastolic 50–71
[2016-10-22] MEDS: ACCU-CHEK COMFORT CURVE STRIP VI SCH ×5 (00:09→17:06)
[2016-10-22] MEDS: InsuLIN REG 1unit/0.01ml Soln (100units/ml) SC SCH ×5 (00:14→17:06)
[2016-10-22] MEDS: FUROSEMIDE 40 MG TAB PO SCH (06:35)
[2016-10-22 07:27] LABS: Basophils # (auto) 0 uL; Basophils % (auto) 0.3 % (0.0-2.0); Eosinophils # (auto) 0.1 uL; Eosinophils % (auto) 1.7 % (0.0-7.0); Hematocrit 31.9 % (41.0-53.0); Hemoglobin 10.3 g/dL (13.5-17.5); Lymphocytes # (auto) 1.5 uL; Mean Corpuscular Hemoglobin 27.8 pg (28.0-32.0); Mean Corpuscular Hgb Conc. 32.4 g/dL (32.0-36.0); Mean Corpuscular Volume 85.9 fL (80.0-100.0); Mean Platelet Volume 8.8 fL (7.4-10.4); Monocytes # (auto) 0.7 uL; Neutrophils # (auto) 5.6 uL; Platelet Count (auto) 206 10^3/uL (140-450); Red Cell Distribution Width 13.4 % (11.6-16.0); White Blood Cell 7.9 10^3/uL (4.4-10.8)
[2016-10-22 07:49] LABS: BUN/Creatinine Ratio 37.8; Calcium 8.8 mg/dL (8.5-10.1); Potassium 3.7 mmol/L (3.5-5.1)
[2016-10-22] MEDS: IPRATROPIUM BROM 0.5 MG/2.5ML INH SOL NEB SCH ×2 (07:50→11:39)
[2016-10-22] MEDS: Boost Glucose Control 8 Ounces PO SCH ×2 (08:00→12:00)
[2016-10-22] MEDS: glipiZIDE 5 MG TAB PO SCH (08:46)
[2016-10-22] MEDS: metFORMIN HYDROCHLORIDE 500 MG TAB PO SCH (08:46)
[2016-10-22] MEDS: CHLORHEXIDINE 0.12% ORAL rinse 473ML MT SCH (10:00)
[2016-10-22] MEDS: ASPirin 81 mg TAB PO SCH (10:26)
[2016-10-22] MEDS: METOPROLOL TARTRATE 25 MG TAB PO SCH (10:27)
[2016-10-22] MEDS: POTASSIUM CHL 20 Meq TABLET PO SCH (10:28)
[2016-10-22] MEDS: DOCUSATE SOD 100 MG CAP PO SCH (10:29)
[2016-10-22] MEDS: LEVOFLOXACIN 500 MG TAB PO SCH (10:29)
[2016-10-22] MEDS: PANTOPRAZOLE 40 MG TAB PO SCH (10:30)
[2016-10-22] MEDS: ISOSORBIDE MONONITRATE 60 MG TAB PO SCH (10:30)
[2016-10-22] MEDS: NITROGLYCERIN 0.4MG/HR TOPICAL PATCH TD SCH (10:32)
[2016-10-22] MEDS: HYDROcodone-ACET 10/325MG TAB PO PRN (12:00)
[2016-10-22] MEDS: SODIUM CHLORIDE 0.9% 1,000 ML IV SCH (14:00)
== END 2016-10-22 17:57 | disposition home or self-care (01) | DRG 234 ==
LOC: ER 18:12 → TELE 18:24 → DOU IN ICU 22:28 → ICU WEST 10-15 22:06
PROVIDERS: ADMIT Nurse Practitioner; ATTEND Internal Medicine
PROC: 4A023N7 Measurement of Cardiac Sampling and Pressure, Left Heart, Percutaneous Approach (ICD-10-PCS; principal; 2016-10-12)
PROC: B2111ZZ Fluoroscopy of Multiple Coronary Arteries using Low Osmolar Contrast (ICD-10-PCS; 2016-10-12)
PROC: B2151ZZ Fluoroscopy of Left Heart using Low Osmolar Contrast (ICD-10-PCS; 2016-10-12)
PROC: 30233R1 Transfusion of Nonautologous Platelets into Peripheral Vein, Percutaneous Approach (ICD-10-PCS; 2016-10-17)
PROC: 30233N1 Transfusion of Nonautologous Red Blood Cells into Peripheral Vein, Percutaneous Approach (ICD-10-PCS; 2016-10-17)
PROC: 02100AW Bypass Coronary Artery, One Artery from Aorta with Autologous Arterial Tissue, Open Approach (ICD-10-PCS; 2016-10-18)
PROC: 021009W Bypass Coronary Artery, One Artery from Aorta with Autologous Venous Tissue, Open Approach (ICD-10-PCS; 2016-10-18)
PROC: 02100Z9 Bypass Coronary Artery, One Artery from Left Internal Mammary, Open Approach (ICD-10-PCS; 2016-10-18)
PROC: 06BS4ZZ (ICD-10-PCS; 2016-10-18)
PROC: 03BC4ZZ Excision of Left Radial Artery, Percutaneous Endoscopic Approach (ICD-10-PCS; 2016-10-18)
PROC: 5A1221Z Performance of Cardiac Output, Continuous (ICD-10-PCS; 2016-10-18)
PROC: B24BZZ4 Ultrasonography of Heart with Aorta, Transesophageal (ICD-10-PCS; 2016-10-18)
DX: I21.4 Non-ST elevation (NSTEMI) myocardial infarction (principal); E87.1 Hypo-osmolality and hyponatremia; R79.1 Abnormal coagulation profile; I25.10 Atherosclerotic heart disease of native coronary artery without angina pectoris; I25.5 Ischemic cardiomyopathy; I10 Essential (primary) hypertension; E66.9 Obesity, unspecified; D64.9 Anemia, unspecified; E78.5 Hyperlipidemia, unspecified; E11.9 Type 2 diabetes mellitus without complications; Z98.52 Vasectomy status; Z68.30 Body mass index [BMI] 30.0-30.9, adult; E87.6 Hypokalemia
CPT/HCPCS: 36415; 36600; 71010; 80048; 80053; 80061; 81001; 82150; 82805; 82962; 83036; 83690; 83735; 83880; 84100; 84132; 84443; 84484; 85014; 85018; 85025; 85049; 85576; 85610; 85730; 86850; 86900; 86901; 86920; 87070; 87077; 87081; 87186; 87205; 93005; 93306; 93458; 93886; 93970; 94002; 94003; 94640; 96372; 96374; 96375; 99152; C1751; C1768; C9113; J0131; J0153; J0171; J0690; J1100; J1642; J1644; J1815; J1956; J2001; J2250; J2405; J2440; J2704; J2720; J3480; J3490; J7060; Q9967